=== PATIENT | male | born 1970 | race Caucasian/White ===

== ENCOUNTER 2017-05-21 11:44 | Emergency (ER) | payer BC, OTHER ==
[2017-05-21] MEDS ORDERED: KETOROLAC 60 MG/2 ML VIAL IM STA (12:37)
--- NOTE | 2017-05-21 12:40 | ED Physician Documentation ---
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 It is not associated with weakness, numbness, tingling in the legs or saddle area. No fevers. He has had back pain before but never in this particular location. There is no shortness of breath.) Review of Systems Constitutional: denies: Fever, Chills Cardiac: denies: Chest pain / pressure, Palpitations Respiratory: denies: Dyspnea, Cough PD PAST MEDICAL HISTORY - Past Medical History Cardiovascular: Hypertension HEENT: Other Musculoskeletal: Chronic back pain Derm: Other Other Past Medical History: L3-S1 surgeries lower back pain. Fx left wrist Melenoma in situ - Past Surgical History Past Surgical History: No General: Cholecystectomy, Appendectomy HEENT: Cataracts, Detached retina repair - Present Medications Home Medications: Ambulatory Orders Medication Instructions Recorded Confirmed Acetaminophen [Tylenol] 2 tab PO DAILY 05/21/17 05/21/17 Cyclobenzaprine [Flexeril] 10 mg PO TID PRN #20 tablet 05/21/17 Lisinopril 1 tab PO DAILY 05/21/17 05/21/17 Losartan [Cozaar] 1 tab PO DAILY 05/21/17 05/21/17 - Allergies Allergies/Adverse Reactions: Allergies Allergy/AdvReac Type Severity Reaction Status Date / Time morphine AdvReac Headache Verified 05/21/17 12:01 - Social History Does the pt smoke?: No Smoking Status: Never smoker Does the pt drink ETOH?: No Does the pt have substance abuse?: No - Immunizations Immunizations are current?: Yes - POLST Patient has POLST: No PD ED PE NORMAL - Vitals Vital signs reviewed: Yes - General General: Alert and oriented X 3, No acute distress - Cardiac Cardiac: RRR, No murmur - Respiratory Respiratory: No respiratory distress, Clear bilaterally - Back Back: No spinal TTP, Other (He actually feels better with muscular palpation of the right rhomboid area, no tenderness or rash.) - Extremities Extremities: Other (The patient has equal and normal Achilles and patellar reflexes bilaterally. Normal sensation in all areas of the legs. Patient denies saddle anesthesia. Normal strength in flexion-extension at the ankles, knees, and flexion of the hips.) - Neuro Neuro: Alert and oriented X 3, Normal speech Results - Vitals Vitals: Vital Signs - 24 hr 05/21/17 11:57 Temperature 37 C Heart Rate 62 Respiratory 14 Rate Blood Pressure 155/93 H O2 Saturation 97 Oxygen O2 Source Room air PD MEDICAL DECISION MAKING - ED course ED course: This patient has seemingly uncomplicated musculoskeletal back pain. The patient has no "red flags." Specifically denies IV drug use, fevers, incontinence, saddle anesthesia. Spinal epidural abscess was considered, given that the patient has no fever, is not diabetic, has no spinal tenderness, does not use IV drugs, and has no bilateral neurologic symptoms, the diagnosis of spinal epidural abscess is considered exceedingly unlikely. Departure - Departure Disposition: 01 Home, Self Care Clinical Impression: Back pain Qualifiers: Back pain location: thoracic back pain Chronicity: acute Back pain laterality: right Qualified Code(s): M54.6 - Pain in thoracic spine Condition: Good Record reviewed to determine appropriate education?: Yes Instructions: ED Neck Back Pain General Prescriptions: Cyclobenzaprine [Flexeril] 10 mg PO TID PRN #20 tablet PRN Reason: Pain Comments: Follow-up with your doctor next week if not better, return if worse or if new symptoms develop. Your blood pressure was elevated today on check into the emergency department. This does not mean that you have hypertension, it is a common phenomenon to come to the emergency department and have elevated blood pressure. I recommend that you see your primary care physician within the week to have it rechecked when you are feeling better. Forms: Activity restrictions
[2017-05-21 12:47] VITALS: BP 182/106
== END 2017-05-21 12:49 | disposition home or self-care (01) ==
LOC: ED 11:44
DX: M54.6 Pain in thoracic spine (principal); I10 Essential (primary) hypertension
CPT/HCPCS: 96372; 99283

== ENCOUNTER 2017-05-25 18:42 | Emergency (ER) | payer OTHER, BC ==
[2017-05-25 19:13] VITALS: BP 160/97
--- NOTE | 2017-05-25 19:30 | ED Physician Documentation ---
PD HPI WOUND RECHECK - Stated complaint Stated Complaint: RELEASE FOR WORK - Chief complaint Chief Complaint: General - Histroy obtained from History obtained from: Patient - History of Present Illness Location: Back (he had had low back strain and is feeling better after couple of days, with limited duty note for 2 days. However he needs release to go back to full duty, even though the note was for just 2 days.) Timing - onset: How many days ago (last week for just 2 days, feeling better and has good ROM of the back now.) Associated symptoms: Other (no numbness nor weakness of the legs.) Recently seen: Emergency Dept (few days ago for back strain and is feeling better. Needs note to be able to return to regular duty.) Review of Systems Constitutional: denies: Fever, Chills : denies: Incontinent Skin: denies: Rash, Lesions Neurologic: denies: Focal weakness, Numbness PD PAST MEDICAL HISTORY - Past Medical History Past Medical History: Yes Cardiovascular: Hypertension HEENT: Other Musculoskeletal: Chronic back pain Derm: Other - Past Surgical History Past Surgical History: No General: Cholecystectomy, Appendectomy HEENT: Cataracts, Detached retina repair - Present Medications Home Medications: Ambulatory Orders Medication Instructions Recorded Confirmed Acetaminophen [Tylenol] 2 tab PO DAILY 05/21/17 05/21/17 Cyclobenzaprine [Flexeril] 10 mg PO TID PRN #20 tablet 05/21/17 Lisinopril 1 tab PO DAILY 05/21/17 05/21/17 Losartan [Cozaar] 1 tab PO DAILY 05/21/17 05/21/17 - Allergies Allergies/Adverse Reactions: Allergies Allergy/AdvReac Type Severity Reaction Status Date / Time morphine AdvReac Headache Verified 05/25/17 19:16 - Social History Does the pt smoke?: No Smoking Status: Never smoker Does the pt drink ETOH?: No Does the pt have substance abuse?: No - Immunizations Immunizations are current?: Yes - POLST Patient has POLST: No PD ED PE NORMAL - Vitals Vital signs reviewed: Yes - General General: Alert and oriented X 3, No acute distress, Well developed/nourished - Back Back: No spinal TTP - Derm Derm: Normal color, Warm and dry - Extremities Extremities: Other (seems to have good ROM (given his body habitus).) Results - Vitals Vitals: Oxygen O2 Source Room air PD MEDICAL DECISION MAKING - ED course Complexity details: considered differential (he is feeling better from recent injury and needs release for going back to work. ), d/w patient Departure - Departure Disposition: 01 Home, Self Care Clinical Impression: Low back strain Qualifiers: Encounter type: subsequent encounter Qualified Code(s): S39.012D - Strain of muscle, fascia and tendon of lower back, subsequent encounter Condition: Stable Record reviewed to determine appropriate education?: Yes Instructions: ED Back Care Tips Comments: Regular activity. Good stretching and range of motion daily to help reduce back injury and pains. Forms: Activity restrictions Discharge Date/Time: 05/25/17 19:50
== END 2017-05-25 19:50 | disposition home or self-care (01) ==
LOC: ED 18:42
DX: S39.012D Strain of muscle, fascia and tendon of lower back, subsequent encounter (principal); X58.XXXD Exposure to other specified factors, subsequent encounter
CPT/HCPCS: 99281; 99282